=== PATIENT | male | born 1990 | race Caucasian/White ===

== ENCOUNTER 2022-11-15 15:16 | Emergency (ER) | payer OTHER ==
[2022-11-15 15:26] VITALS: BP 132/83; PULSE 87; RESP 20; TEMP 98.8; BMI 33.5
[2022-11-15] MEDS ORDERED: KETOROLAC TROMETHAMINE 30 MG/1 ML VIAL IM ONE (17:49)
[2022-11-15] MEDS ORDERED: MAG HYDROX/AL HYDROX/SIMETH 30 ML UNIT-DOSE CUP PO ONE (18:04)
[2022-11-15] MEDS ORDERED: LIDOCAINE VISCOUS 2% ORAL/TOP 15 ML UNIT-DOSE CUP MM ONE (18:04)
[2022-11-15] MEDS ORDERED: DEXAMETHASONE 4 MG TABLET (FP) PO ONE (18:04)
[2022-11-15] MEDS ORDERED: DEXAMETHASONE 4 MG TABLET (FP) ONE (18:14)
[2022-11-15] MEDS ORDERED: KETOROLAC TROMETHAMINE 30 MG/1 ML VIAL ONE (18:14)
[2022-11-15] MEDS ORDERED: MAG HYDROX/AL HYDROX/SIMETH 30 ML UNIT-DOSE CUP ONE (18:14)
[2022-11-15] MEDS ORDERED: LIDOCAINE VISCOUS 2% ORAL/TOP 15 ML UNIT-DOSE CUP ONE (18:14)
== END 2022-11-15 20:08 | disposition home or self-care (01) ==
LOC: JERFT 15:16
PROC: 3E0233Z Introduction of Anti-inflammatory into Muscle, Percutaneous Approach (ICD-10-PCS; principal; 2022-11-15)
DX: J02.9 Acute pharyngitis, unspecified (principal); B34.9 Viral infection, unspecified; Z20.822 Contact with and (suspected) exposure to COVID-19
CPT/HCPCS: 0241U-QW; 87651; 99284-25